=== PATIENT | female | born 1970 | race Caucasian/White ===

== ENCOUNTER 2017-08-28 08:03 | Day surgery (SDC) | payer OTHER ==
[2017-08-27 11:48] VITALS: BMI 21.9
[~2017-08-28 08:03] MED LIST: TOBRAMYCIN/DEXAMETHASONE OPHTH. OINTMENT 1 TUBE TP ONE
[2017-08-28] MEDS ORDERED: MOXIFLOXACIN HCL 0.5% OPHTHALMIC 3 ML BOTTLE ONE (08:30)
[2017-08-28] MEDS ORDERED: TROPICAMIDE 0.5% OPHTHALMIC SOLN 15 ML BOTTLE ONE (08:30)
[2017-08-28] MEDS ORDERED: PHENYLEPHRINE 2.5% OPHTH SOLN 15 ML BOTTLE ONE (08:30)
[2017-08-28] MEDS ORDERED: CYCLOPENTOLATE HCL 1% OPHTH SOLN 2 ML BOTTLE ONE (08:30)
[2017-08-28] MEDS ORDERED: MIDAZOLAM HCL 2 MG/2 ML SINGLE DOSE VIAL ONE (08:37)
[2017-08-28] MEDS: CYCLOPENTOLATE HCL 1% OPHTH SOLN 2 ML BOTTLE OP SCH ×3 (08:40→08:50)
[2017-08-28] MEDS: TROPICAMIDE 1% OPHTH SOLN 15 ML BOTTLE OP SCH ×3 (08:40→08:50)
[2017-08-28] MEDS: PHENYLEPHRINE 2.5% OPHTH SOLN 15 ML BOTTLE OP SCH ×3 (08:40→08:50)
[2017-08-28] MEDS: MOXIFLOXACIN HCL 0.5% OPHTHALMIC 3 ML BOTTLE OP SCH ×3 (08:40→08:50)
[2017-08-28 08:49] VITALS: TEMP 97.5
[2017-08-28] MEDS ORDERED: BUPIVACAINE HCL/PF 0.75% 10 ML VIAL ONE (08:59)
[2017-08-28] MEDS ORDERED: EPINEPHrine/PF 1 MG/1 ML (1:1,000) AMPULE ONE (08:59)
[2017-08-28] MEDS ORDERED: TOBRAMYCIN/DEXAMETHASONE OPHTH. OINTMENT 1 TUBE ONE (08:59)
[2017-08-28] MEDS ORDERED: TETRACAINE 0.5% OPHTH SOLN 2 ML BOTTLE ONE (09:00)
[2017-08-28] MEDS ORDERED: LIDOCAINE HCL/PF 1% SDV 5ML VIAL ONE (09:00)
[2017-08-28] MEDS ORDERED: LIDOCAINE HCL/PF 2% SDV 5ML VIAL ONE (09:00)
--- NOTE | 2017-08-28 09:15 | HP ---
History & Physical Update - History History: No Change (see medical clearance in chart 07/03/2017) - Physical Physical: No Change (see medical clearance in chart 07/03/2017) - Assessment Assessment: No Change (see medical clearance in chart 07/03/2017) - Plan Plan: No Change (see medical clearance in chart 07/03/2017)
[2017-08-28] MEDS ORDERED: TETRACAINE 0.5% OPHTH SOLN 2 ML BOTTLE TP ONE (09:21)
[2017-08-28] MEDS ORDERED: BUPIVACAINE HCL/PF 0.75% 10 ML VIAL RB ONE (09:23)
[2017-08-28] MEDS ORDERED: LIDOCAINE HCL/PF 2% SDV 5ML VIAL PNB ONE (09:23)
[2017-08-28] MEDS ORDERED: CHONDROITIN SU A/HYALUR SOD 1 KIT IO ONE (09:33)
[2017-08-28] MEDS ORDERED: LIDOCAINE HCL 1% PRESERVATIVE FREE - 30ML VIAL IO ONE (09:33)
[2017-08-28] MEDS ORDERED: TOBRAMYCIN/DEXAMETHASONE OPHTH. OINTMENT 1 TUBE TP ONE (09:51)
[2017-08-28 11:14] VITALS: BP 135/72; PULSE 77
--- NOTE | 2017-08-28 12:40 | OP ---
DATE OF OPERATION: 08/28/2017 SURGEON: Reji Mckinney MD PREOPERATIVE DIAGNOSIS: Cataract, right eye. OPERATION: Phacoemulsification and intraocular lens implantation, right eye. POSTOPERATIVE DIAGNOSIS: Cataract, right eye. ANESTHESIA: Local with intravenous sedation. COMPLICATIONS: None. BLOOD LOSS: None. SPECIMEN: None. BRIEF HISTORY: The patient is a 47-year-old woman with a past medical history of diabetes who presented with decreased vision in the right eye down to 20/50- due to a 2+ nuclear sclerotic lens with a posterior subcapsular cataract. After the risks, benefits, and alternatives to cataract surgery were discussed with the patient, she consented to surgery for the right eye. DESCRIPTION OF PROCEDURE: The patient was brought to the operating room and administered retrobulbar block after receiving intravenous sedation. She was then prepped and draped in the usual sterile fashion and an eyelid speculum was inserted in the right eye. A paracentesis was made, and the anterior chamber was inflated with nonpreserved lidocaine. This was followed by injection of Viscoat. A groove was made in the temporal clear cornea which was tunneled forward with a crescent blade. The anterior chamber was entered with a 2.75 keratome. The cystotome was used to make an incision at the center of the capsule, and a continuous curvilinear capsulorrhexis was created. The lens was hydrodissected until it was found to rotate freely within the capsular bag. Phacoemulsification was then used to remove the lens in its entirety. Irrigation and aspiration were used to remove residual cortical material. The anterior chamber and capsular bag were reinflated with Provisc, and a 24.5 diopter SN60WF AcrySof intraocular lens was injected into the capsular bag using the [place] injector. The lens was dialed into place using the Biophotonic Solutionsey hook. Irrigation and aspiration were used to remove residual viscoelastic. The wound was stromally hydrated until it was found to be watertight and the eye was in an appropriate pressure. The eyelid speculum was removed from the eye and TobraDex ointment and a patch and shield were placed over the right eye. The patient was transferred to the recovery room in stable condition and will follow up tomorrow. Harpreet SÁNCHEZ/[id number] MTDD
== END 2017-08-28 11:04 | disposition home or self-care (01) ==
LOC: JASU-SURG 08:03
PROVIDERS: ATTEND Ophthalmology
PROC: 08RJ3JZ Replacement of Right Lens with Synthetic Substitute, Percutaneous Approach (ICD-10-PCS; principal; 2017-08-28 09:00)
DX: H25.11 Age-related nuclear cataract, right eye (principal); E11.9 Type 2 diabetes mellitus without complications

== ENCOUNTER 2018-02-20 09:05 | Day surgery (SDC) | payer OTHER ==
[2018-02-19 11:13] VITALS: BMI 23.5
[~2018-02-20 09:05] MED LIST changes: +ACETAMINOPHEN 325 MG TABLET (FP) PO PRN; -TOBRAMYCIN/DEXAMETHASONE OPHTH. OINTMENT 1 TUBE TP ONE
[2018-02-20] MEDS ORDERED: CYCLOPENTOLATE HCL 1% OPHTH SOLN 2 ML BOTTLE ONE (09:20)
[2018-02-20] MEDS ORDERED: KETOROLAC TROMETHAMINE 0.5% EYE DROP 1 DROP DROPS ONE (09:21)
[2018-02-20] MEDS ORDERED: OFLOXACIN 0.3% OPHTHALMIC SOLUTION 5 ML BOTTLE ONE (09:22)
[2018-02-20] MEDS ORDERED: PHENYLEPHRINE 2.5% OPHTH SOLN 15 ML BOTTLE ONE (09:22)
[2018-02-20] MEDS ORDERED: TROPICAMIDE 1% OPHTH SOLN 15 ML BOTTLE ONE (09:22)
[2018-02-20] MEDS: TROPICAMIDE 1% OPHTH SOLN 15 ML BOTTLE OP SCH ×2 (09:30→09:37)
[2018-02-20] MEDS: PHENYLEPHRINE 2.5% OPHTH SOLN 15 ML BOTTLE OP SCH ×2 (09:30→09:38)
[2018-02-20] MEDS: CYCLOPENTOLATE HCL 1% OPHTH SOLN 2 ML BOTTLE OP SCH ×2 (09:30→09:38)
[2018-02-20] MEDS: OFLOXACIN 0.3% OPHTHALMIC SOLUTION 5 ML BOTTLE OP SCH ×2 (09:30→09:38)
[2018-02-20] MEDS: KETOROLAC TROMETHAMINE 0.5% EYE DROP 1 DROP DROPS OP SCH ×2 (09:30→09:38)
[2018-02-20] MEDS ORDERED: EPINEPHrine/PF 1 MG/1 ML (1:1,000) AMPULE ONE (09:42)
[2018-02-20] MEDS ORDERED: TRYPAN BLUE 0.5 ML DISP.SYRIN ONE (09:43)
[2018-02-20] MEDS ORDERED: BUPIVACAINE HCL/PF 0.75% 10 ML VIAL ONE (09:43)
[2018-02-20] MEDS ORDERED: LIDOCAINE HCL/PF 2% SDV 5ML VIAL ONE (09:43)
[2018-02-20] MEDS ORDERED: LIDOCAINE HCL/PF 1% SDV 5ML VIAL ONE (09:43)
[2018-02-20] MEDS ORDERED: TETRACAINE 0.5% OPHTH SOLN 2 ML BOTTLE ONE (09:44)
[2018-02-20] MEDS ORDERED: PROPOFOL 20 ML ONE (10:15)
[2018-02-20] MEDS ORDERED: POVIDONE-IODINE 5% OPHTHALMIC PREP 30 ML SOLUTION OS ONE (10:20)
[2018-02-20] MEDS ORDERED: LIDOCAINE HCL 2% (50ML VIAL) RB ONE (10:22)
[2018-02-20] MEDS ORDERED: BUPIVACAINE HCL/PF 0.75% 10 ML VIAL RB ONE (10:22)
[2018-02-20] MEDS ORDERED: LIDOCAINE HCL 1% PRESERVATIVE FREE - 30ML VIAL IO ONE (10:23)
[2018-02-20] MEDS ORDERED: CHONDROITIN SU A/HYALUR SOD 1 KIT IO ONE ×3 (10:23)
[2018-02-20] MEDS ORDERED: VANCOMYCIN 500 MG VIAL (RESTRICTED TO ID ONLY) IVPB ONE (10:24)
[2018-02-20] MEDS ORDERED: HYALURONATE SODIUM 14 MG/ML DISP.SYRIN IO ONE (10:42)
[2018-02-20] MEDS ORDERED: MANNITOL 25% 12.5 GM/50 ML VIAL IVPB ONE ×2 (10:54→11:00)
[2018-02-20] MEDS ORDERED: EPINEPHrine/PF 1 MG/1 ML (1:1,000) AMPULE IO ONE (10:54)
[2018-02-20] MEDS ORDERED: CHONDROITIN SU A/HYALUR SOD 1 KIT ONE (11:04)
[2018-02-20 12:05] VITALS: BP 119/68; PULSE 79; TEMP 98
--- NOTE | 2018-02-20 12:05 | OP ---
DATE OF OPERATION: 02/20/2018 SURGEON: Montserrat Espinosa MD PREOPERATIVE DIAGNOSIS: Cataract, left eye. POSTOPERATIVE DIAGNOSIS: Cataract, left eye. OPERATION: Phacoemulsification of left cataract for posterior chamber intraocular lens implantation. LENS USED: SN60WF 24.50 diopter power, serial No. [id number]. ANESTHESIA: Peribulbar/Modified Van Lint/ MAC. COMPLICATIONS: None. PROCEDURE: The patient was brought to the operating room and correctly identified along with the operative site as well as the correct intraocular lens montoya. She was then given a peribulbar block under sedation with 5 mL of a 1:1 mixture of 2 % Lidocaine and 0.75% Bupivacaine. Two mL of the same mixture was given as a modified Van Lint block. The eye was then prepped and draped in the usual sterile fashion including 5% Betadine solution in the conjunctival sac and an eyelid drape. An eyelid speculum was then placed into the left eye. A paracentesis port was created, and 0.5 mL of intracameral lidocaine was given. Viscoelastic was then injected to inflate the anterior chamber. A temporal clear corneal wound was created, and a capsulorrhexis was initiated. The lens was, however, noted to bow forward and the chamber shallow, each time the capsulorrhexis forceps was inserted inside the eye. The patient was advised not to strain but denied doing so. Healon GV was placed on top of the lens and viscoat placed as a plug in an arshinoff shell technique. The lid speculum was also loosed. Despite this , the chamber was still noted too shallow. The continuous capsulorrhexis was performed for approximately 270 degrees when the capsulorrhexis began to run peripherally. At this point, further viscoelastic was placed to stabilize anterior chamber and flatten the anterior capsule, but this still did not result in any significant deepening. The decision was then made to give mannitol IV and approximately 15 minutes of waiting, the anterior chamber seemed to deepen. The capsulorrhexis was then grasped with the capsulorrhexis forceps and pulled centrally using the Little rescue maneuver. The capsulorrhexis then successfully completed. The nucleus was then hydro-dissected with BSS and removed with phacoemulsification. The remaining cortical material was irrigated and aspirated from the eye. Viscoelastic was injected to inflate the capsular bag. The lens was injected into the capsular bag. The capsulorrhexis was then noted to be in a keyhole shape, The intraocular lens was rotated so that the haptics were not in the area of the keyhole. The viscoelastic was then irrigated and aspirated from the eye, and again, the intraocular lens inspected and noted to be well centered and largely covered by the anterior capsule border with the haptics not exposed. All wounds were tested and found to be watertight. No suture was placed. Topical vancomycin was given, the eye was patched and shielded, patient was discharged from the operating room in a stable condition. MONTSERRAT ESPINOSA M.D. [id number] MTDD
== END 2018-02-20 12:15 | disposition home or self-care (01) ==
LOC: JASU-SURG 09:05
PROVIDERS: ATTEND Ophthalmology
PROC: 08RK3JZ Replacement of Left Lens with Synthetic Substitute, Percutaneous Approach (ICD-10-PCS; principal; 2018-02-20 10:00)
DX: H26.9 Unspecified cataract (principal)